=== PATIENT | female | born 1965 | race Caucasian/White ===

== ENCOUNTER 2017-01-15 23:53 | Emergency (ER) | payer OTHER ==
[~2017-01-15] VITALS: Ht 170.2 cm; Wt 113.4 kg
[~2017-01-15 23:53] MED LIST: NOHOMEMEDS
[2017-01-16] MEDS ORDERED: VENTOLIN HFA18 GM IH (01:25)
[2017-01-16] MEDS ORDERED: TESSALON200 MG PO (01:25)
[2017-01-16 01:39] VITALS: BP 134/90
== END 2017-01-16 01:40 | disposition home or self-care (01) ==
LOC: EME 23:53
DX: J20.9 Acute bronchitis, unspecified (principal)
CPT/HCPCS: 71020; 94640; 94640 76; 94664; 99281; 99284